=== PATIENT | female | born 1960 | race Caucasian/White ===

== ENCOUNTER 2021-12-17 13:00 | Outpatient (CLI) | payer OTHER | END 2021-12-17 13:01 | disposition home or self-care (01) | LOC: CSHMAMMO 13:00 | PROVIDERS: ATTEND Obstetrics & Gynecology | DX: M85.89 Other specified disorders of bone density and structure, multiple sites (principal) | CPT/HCPCS: 77080 ==

== ENCOUNTER 2023-01-15 08:59 | Outpatient (CLI) | payer OTHER | END 2023-01-15 09:00 | disposition home or self-care (01) | LOC: CSHMAMMO 08:59 | PROVIDERS: ATTEND Family Medicine | DX: Z12.31 Encounter for screening mammogram for malignant neoplasm of breast (principal) | CPT/HCPCS: 77063; 77067 ==

== ENCOUNTER 2024-01-18 13:10 | Outpatient (CLI) | payer OTHER | END 2024-01-18 13:11 | disposition home or self-care (01) | LOC: CSHMAMMO 13:10 | PROVIDERS: ATTEND Student in an Organized Health Care Education/Training Program | DX: Z12.31 Encounter for screening mammogram for malignant neoplasm of breast (principal); Z13.820 Encounter for screening for osteoporosis; Z78.0 Asymptomatic menopausal state; M85.89 Other specified disorders of bone density and structure, multiple sites | CPT/HCPCS: 77063; 77067; 77080 ==